=== PATIENT | female | born 1985 | race African-American/Black ===

== ENCOUNTER 2024-11-03 22:49 | Inpatient (IN) | payer OTHER ==
[2024-11-03 22:55] VITALS: BMI 21.4
[2024-11-04] MEDS ORDERED: levETIRAcetam 500 MG/5 ML INJECTION VIAL IVPB ONE ×2 (00:34→03:43)
[2024-11-04] MEDS: levETIRAcetam 500 MG/5 ML INJECTION VIAL IVPB ONE ×2 (00:44→03:55)
[2024-11-04 00:48] LABS: BASO % 0.3 % (0-2.0); EOS % 4.4 % (0-4.5); HEMOGLOBIN 13.6 GM/dL (10.7-15.3); MCH 28.2 pg (25.7-33.7); MCHC 32.3 g/dl (32.0-36.0); MEAN CELL VOLUME 87.1 fl (80-96); MEAN PLT VOLUME 7.3 fl (7.5-11.1); MONO % 8.8 % (3.8-10.2); NEUT % 63.5 % (42.8-82.8); PLATELET COUNT 250 10^3/uL (134-434); RBC 4.83 M/mm3 (3.60-5.2); RDW 13.7 % (11.6-15.6); WHITE BLOOD COUNT 4.9 K/mm3 (4.0-10.0)
[2024-11-04 01:04] LABS: POTASSIUM 4.3 mmol/L (3.5-5.1)
[2024-11-04 01:07] LABS: CALCIUM 8.9 mg/dL (8.5-10.1)
[2024-11-04 01:08] LABS: ALBUMIN 3.1 g/dl (3.4-5.0); BLOOD UREA NITROGEN 18.4 mg/dL (7-18)
[2024-11-04 01:10] LABS: CREATININE 0.8 mg/dL (0.55-1.3)
[2024-11-04 01:16] LABS: BILIRUBIN,TOTAL 0.3 mg/dL (0.2-1); TOT PROT 6.5 g/dl (6.4-8.2)
[2024-11-04] MEDS ORDERED: ACETAMINOPHEN INJECTION 100 ML ONE (01:40)
[2024-11-04] MEDS ORDERED: CEFTRIAXONE 1 G/50 ML PREMIX 50 ML IVPB ONE (01:53)
[2024-11-04] MEDS ORDERED: AZITHROMYCIN IVPB 500 MG/250 ML BAG IVPB ONE (01:53)
[2024-11-04] MEDS: SODIUM CHLORIDE 0.9% 500 ML INFUS.BAG IV ONE (02:26)
[2024-11-04] MEDS: CEFTRIAXONE 1,000 MG in DEXTROSE 5%-WATER - 50 ML IVPB ONE (02:26)
[2024-11-04] MEDS: AZITHROMYCIN IVPB 500 MG in DEXTROSE 5%-WATER - 250 ML IVPB ONE (02:26)
[2024-11-04 03:14] LABS: EPI CELLS 12 /uL (0-25.1); HYALINE CASTS 3 /uL (0-3.1); URINE APPEARANCE TURBID; URINE BACTERIA >9,000 /uL (0-1359); URINE BILIRUBIN NEGATIVE (NEGATIVE); URINE COLOR YELLOW; URINE GLUCOSE (UA) NEGATIVE (NEGATIVE); URINE KETONE NEGATIVE (NEGATIVE); URINE LEUK ESTERASE 2+ (NEGATIVE); URINE NITRITE NEGATIVE (NEGATIVE); URINE PROTEIN 2+ (NEGATIVE); URINE RBC 98 /uL (0-23.9); URINE WBC 305 /uL (0-25.8)
[2024-11-04] MEDS: ACETAMINOPHEN 1000 MG/100 ML BAG IVPB ONE (03:16)
[2024-11-04] MEDS: lamoTRIgine 100 MG TABLET PO ONE (03:58)
[2024-11-04] MEDS: lamoTRIgine 100 MG TABLET PO SCH (06:35)
[2024-11-04 09:01] LABS: URINE CRYSTALS MODERATE /hpf
[2024-11-04] MEDS: ENOXAPARIN NA (PORCINE) 40 MG/0.4 ML DISP.SYRIN SQ SCH (09:56)
[2024-11-04] MEDS: CALCIUM 500MG/VIT-D 200 UNITS COMBO TABLET (FP) PO SCH (09:56)
[2024-11-04] MEDS: LACTULOSE 20 GM/30 ML UDC (FOR ORAL USE ONLY) PO SCH (09:56)
[2024-11-04] MEDS: AMMONIUM LACTATE 12% LOTION 225 GM BOTTLE TP SCH (09:56)
[2024-11-04] MEDS: CLOTRIMAZOLE 1% CREAM TP SCH (09:56)
[2024-11-04] MEDS: BENZTROPINE MESYLATE 1 MG TABLET PO SCH ×2 (09:57→21:46)
[2024-11-04] MEDS: levETIRAcetam 500 MG/5 ML ORAL SOLUTION (UNIT-DOSE CUPS) PO SCH (09:57)
[2024-11-04] MEDS ORDERED: IBUPROFEN 400 MG TABLET (FP) PO PRN (11:47)
[2024-11-04] MEDS ORDERED: PIPERACILLIN/TAZOB 3.375 GM 3.375 GM/50 ML BAG IVPB SCH (13:30)
[2024-11-04] MEDS: PIPERACILLIN/TAZOB 3.375 GM 50 ML IVPB SCH (15:03)
[2024-11-04] MEDS ORDERED: CEFTRIAXONE 1 G/50 ML PREMIX 50 ML IVPB SCH (22:00)
[2024-11-04] MEDS ORDERED: AZITHROMYCIN IVPB 500 MG/250 ML BAG IVPB SCH (22:00)
[2024-11-05 07:37] LABS: INR 1.25 (0.83-1.09); PROTHROMBIN TIME (PATIENT) 14.3 SEC (9.7-13.0)
[2024-11-05 07:39] LABS: ACTIVATED PTT 33.4 SECONDS (25.2-36.5)
[2024-11-05 07:53] LABS: CALCIUM 9.2 mg/dL (8.5-10.1)
[2024-11-05 07:54] LABS: BLOOD UREA NITROGEN 10.8 mg/dL (7-18)
[2024-11-05 07:57] LABS: CREATININE 0.7 mg/dL (0.55-1.3)
[2024-11-05 07:58] LABS: BILIRUBIN,TOTAL 0.4 mg/dL (0.2-1); TOT PROT 6.2 g/dl (6.4-8.2)
[2024-11-05 08:01] LABS: BASO % 0.6 % (0-2.0); EOS % 5.3 % (0-4.5); HEMATOCRIT 39.5 % (32.4-45.2); HEMOGLOBIN 12.8 GM/dL (10.7-15.3); LYMPH % 31.6 % (8-40); MCH 28.4 pg (25.7-33.7); MCHC 32.3 g/dl (32.0-36.0); MEAN CELL VOLUME 87.8 fl (80-96); MEAN PLT VOLUME 7.5 fl (7.5-11.1); MONO % 10.4 % (3.8-10.2); NEUT % 52.1 % (42.8-82.8); PLATELET COUNT 232 10^3/uL (134-434); WHITE BLOOD COUNT 3.4 K/mm3 (4.0-10.0)
[2024-11-05] MEDS ORDERED: LACTULOSE 10 GM PO SCH (10:00)
[2024-11-05 22:04] VITALS: RESP 18
[2024-11-06 09:19] LABS: POTASSIUM 4.1 mmol/L (3.5-5.1)
[2024-11-06 09:22] LABS: CALCIUM 9.1 mg/dL (8.5-10.1)
[2024-11-06 09:23] LABS: ALBUMIN 3.1 g/dl (3.4-5.0); BLOOD UREA NITROGEN 12.2 mg/dL (7-18); MAGNESIUM 1.7 mg/dL (1.8-2.4)
[2024-11-06 09:26] LABS: CREATININE 0.7 mg/dL (0.55-1.3)
[2024-11-06 09:28] LABS: BILIRUBIN,TOTAL 0.4 mg/dL (0.2-1); TOT PROT 6.4 g/dl (6.4-8.2)
[2024-11-06] MEDS: MAGNESIUM 1GM/D5W 100ML - 100 ML IVPB IVPB ONE (10:34)
[2024-11-06] MEDS ORDERED: BENZTROPINE MESYLATE 2 MG TABLET PO SCH (10:36)
[2024-11-06] MEDS: D3 PO SCH (13:37)
[2024-11-06] MEDS: [UNRECOGNIZED DRUG - OTHER] PO SCH (13:37)
[2024-11-06] MEDS: MAG OX PO SCH (13:37)
[2024-11-06 16:35] VITALS: BP 112/74; PULSE 81; TEMP 98.2
== END 2024-11-06 18:28 | disposition home or self-care (01) | DRG 53 ==
LOC: JER 22:49 → JERBED 11-04 01:33 → OBSVTOIN 11-04 04:32 → J7W 11-04 05:48
PROVIDERS: ADMIT Internal Medicine
DX: G40.89 Other seizures (principal); J69.0 Pneumonitis due to inhalation of food and vomit; R53.2 Functional quadriplegia; F72 Severe intellectual disabilities; Q87.19 Other congenital malformation syndromes predominantly associated with short stature; N39.0 Urinary tract infection, site not specified
CPT/HCPCS: 0241U-QW; 36415; 71045-TC-FY; 80048; 80053; 80175; 80177; 81003; 82962; 83605; 83735; 85025; 85610; 85730; 87086; 87186; 93005; 93010; 95816; 99285-25; G0378; J0131

== ENCOUNTER 2024-12-17 19:30 | Emergency (ER) | payer OTHER ==
[2024-12-17 19:40] VITALS: BP 106/77; PULSE 81; RESP 22; TEMP 99; BMI 16.9
== END 2024-12-18 00:59 ==
LOC: JER 19:30
DX: S73.005A Unspecified dislocation of left hip, initial encounter (principal); X58.XXXA Exposure to other specified factors, initial encounter
CPT/HCPCS: 36415; 72192-TC; 84703; 99284-25

== ENCOUNTER 2025-02-08 16:34 | Emergency (ER) | payer OTHER ==
[2025-02-08 17:11] VITALS: PULSE 72; RESP 20; TEMP 98.9; BMI 19.4
[2025-02-08 17:42] VITALS: BP 145/111
[2025-02-08 17:57] LABS: BASO % 0.4 % (0-2.0); EOS % 7.7 % (0-4.5); HEMATOCRIT 36.9 % (32.4-45.2); HEMOGLOBIN 11.6 GM/dL (10.7-15.3); LYMPH % 33.3 % (8-40); MCH 27.6 pg (25.7-33.7); MCHC 31.5 g/dl (32.0-36.0); MEAN CELL VOLUME 87.5 fl (80-96); MONO % 11.1 % (3.8-10.2); NEUT % 47.5 % (42.8-82.8); PLATELET COUNT 266 10^3/uL (134-434); RBC 4.21 M/mm3 (3.60-5.2); RDW 14.7 % (11.6-15.6); WHITE BLOOD COUNT 3.8 K/mm3 (4.0-10.0)
[2025-02-08 18:08] LABS: POTASSIUM 4.7 mmol/L (3.5-5.1)
[2025-02-08 18:10] LABS: BLOOD UREA NITROGEN 13.8 mg/dL (7-18); CALCIUM 8.7 mg/dL (8.5-10.1)
[2025-02-08 18:11] LABS: ALBUMIN 3.1 g/dl (3.4-5.0)
[2025-02-08 18:14] LABS: CREATININE 0.6 mg/dL (0.55-1.3)
[2025-02-08 18:15] LABS: BILIRUBIN,TOTAL 0.2 mg/dL (0.2-1)
[2025-02-08 18:16] LABS: TOT PROT 6.4 g/dl (6.4-8.2)
== END 2025-02-08 21:15 | disposition home or self-care (01) ==
LOC: JER 16:34
DX: R56.9 Unspecified convulsions (principal)
CPT/HCPCS: 0241U-QW; 36415; 70450-TC; 71045-TC-FY; 80053; 80175; 80177; 84484; 84703; 85025; 93005; 93010; 99285-25